=== PATIENT | female | born 1940 ===

== ENCOUNTER → 2018-05-12 | Outpatient (CLI) | payer OTHER ==
[~2018-05-12] VITALS: Ht 149.9 cm; Wt 72.5 kg
[~2018-05-12] MED LIST: ASPIR 8181 MG PO; CYMBALTA30 MG PO; ESTRACE1 TUBE VAG; FLONASE 0.05%50 MCG NASAL; IBUPROFEN 200200 M1 PO; LIORESAL 10 MG10 MG PO; LIPITOR80 MG PO; LYRICA 50 MG50 MG PO; LYRICA100 MG PO; XALATAN2.5 ML OPHTHALMIC
[2018-05-12 10:48] VITALS: BP 121/65
--- NOTE | 2018-05-12 11:01 | NUR ---
Pain Clinic Assessment: 1. History of Osteoarthritis: History of Rheumatoid Arthritis: 2. Height: 4 ft. 11 in. 149.9 cm. Weight: 159.8 lb. oz. 72.485 kg. Patient's BMI: 32.3 3. Vital Signs: BP: 121/65 Pulse: 80 Resp: 16 Temp: 02 Sat: 99 ECG Mon: 4. Pain Intensity: 1 5. Fall Risk: Dizziness: N Needs help standing or walking: N Fallen in the last 3 months: N Fall risk comments: 6. Patient on Blood Thinner: None 7. History of Hypertension: N 8. Opioid Therapy greater than 6 weeks: N Opiate Contract Signed: 9. Risk Assessment Tool Provided: LOW 10. Functional Assessment Tool: 11. Recreational Drug Use: Never Drug Type: Tobacco Use: Never Smoker Tobacco Type: Amount or Packs/day: How Many Years: Alcohol Use: Yes Frequency: Daily Quant: 1
== END ==
LOC: PAIN 06:51
DX: M25.552 Pain in left hip (principal); M54.5 Low back pain

== ENCOUNTER → 2018-09-01 | Outpatient (CLI) | payer OTHER ==
[~2018-09-01] VITALS: Ht 149.9 cm; Wt 72.2 kg
[2018-09-01 09:48] VITALS: BP 101/63
--- NOTE | 2018-09-01 09:59 | NUR ---
Pain Clinic Assessment: 1. History of Osteoarthritis: Not Applicable History of Rheumatoid Arthritis: Not Applicable 2. Height: 4 ft. 11 in. 149.9 cm. Weight: 159.2 lb. oz. 72.213 kg. Patient's BMI: 32.1 3. Vital Signs: BP: 101/63 Pulse: 94 Resp: 16 Temp: 02 Sat: 95 ECG Mon: 4. Pain Intensity: 1 5. Fall Risk: Dizziness: Y Needs help standing or walking: N Fallen in the last 3 months: N Fall risk comments: 6. Patient on Blood Thinner: None 7. History of Hypertension: N 8. Opioid Therapy greater than 6 weeks: N Opiate Contract Signed: 9. Risk Assessment Tool Provided: LOW 10. Functional Assessment Tool: 11. Recreational Drug Use: Never Drug Type: Tobacco Use: Never Smoker Tobacco Type: Amount or Packs/day: How Many Years: Alcohol Use: Yes Frequency: Special Occasions Quant: 1
--- NOTE | 2018-09-02 07:37 | HPC ---
[facility] [place] [address] PAIN MANAGEMENT CONSULTATION Name: BOBBY BRASHER Room #: REG JOHN Hooks.#: [id number] Admission: 09/01/18 ������������������ Attend Phys: Nery Wood Discharge: ������������������ Date of : 44 Report #: [id number] THIS REPORT FOR: //name// CC: Nery Wood [facility] physician/PCP DATE OF SERVICE: 09/01/2018 CHIEF COMPLAINT: Low back pain and left hip pain. HISTORY OF PRESENT ILLNESS: This is a very pleasant 78-year-old female, who returns to the Pain Clinic today for refill of her medications. Her last visit here was in April for medications. She has not been here since. She has been tapering some of her Lyrica since she needed an appointment to see us. She tells me that her pain score is a 1/10 today, mostly in her left hip, worse with movement and sitting, that her medications are helpful. She tells me that she has weaned her Lyrica some to get to this appointment. She is currently taking 50 mg b.i.d. and 100 once a day and she continues her Cymbalta pills once a day. She tells me she has an appointment with a new primary care doctor towards the end of August that she is hopeful that will take over her medications, but she is unsure at that time if he will continue her on Lyrica and is here today for refill of that medicine. ALLERGIES: PENICILLIN. CURRENT MEDICATIONS: Lyrica 50 mg b.i.d., Lyrica 100 daily, Cymbalta 30 mg daily, ibuprofen 200 mg p.r.n., baclofen 10 mg at bedtime, aspirin daily, Estrace daily, Flonase as needed, Lipitor 80 mg daily. PQRS: 1. The patient has osteoarthritic changes in her lower back. She denies any rheumatoid arthritis. 2. Height is 4 feet 11 inches, weight is 159, BMI is 32, blood pressure is 101/63, pulse is 94, respirations 16, oxygen sat is 95. Pain score is 1/10. 3. Fall risk. Complains of some dizziness, does not need help walking or standing, has not fallen in the last 3 months. 4. The patient is not on any blood thinners or hypertension medicines. She is not on opioids. 5. Her risk assessment tool is low. Her functional assessment is 0. 5. She denies any recreational drug use. She is not a smoker and occasionally drinks alcohol. PHYSICAL EXAMINATION: GENERAL: This is a well-developed, well-nourished, well-hydrated 78-year-old female, who appears her stated age, placing her current pain score of 1/[address] [address] PAIN MANAGEMENT CONSULTATION Name: BOBBY BRASHER Room #: REG CLI M.Rach.#: [id number] Admission: 09/01/18 ������������������ Attend Phys: Nery Wood Discharge: ������������������ Date of : 44 Report #: [id number] HEENT: Normocephalic, atraumatic. Pupils equal, round and reactive to light. Extraocular eye muscles are intact. Mucous membranes are moist. MUSCULOSKELETAL: Lower extremity strength judged to be 5/5, appears symmetrical. The patient complains of left hip pain that does not radiate down her legs. She does have some numbness in her feet bilaterally. The patient walks with a slightly antalgic gait. ASSESSMENT: 1. Chronic low back pain. 2. Chronic left buttock pain. 3. Chronic cervical radiculopathy. 4. Chronic intractable pain. PLAN: 1. We discussed treatment options with thue patient today. The patient is here for renewal of her Lyrica. She tells me she has weaned down her medicines, but she seems to be doing quite well. We discussed the lowest most effective dose for her Lyrica and it was decided after much discussion to give her a prescription of Lyrica 100 mg 3 times a day, #90 with 2 additional refills. The patient was instructed to start her Lyrica at 100 b.i.d. and continue that indefinitely. If her pain does increase, then she will take the third pill and go back to 300 mg total a day. This is what she has been taking in that 150 mg pills. The patient is agreeable with this plan of care. 2. The patient has been also taking Cymbalta 30 mg daily. She has plenty of medications left from her last refill. She will ask her new primary care doctor to refill that. She has plenty of pills to get to that appointment. 3. I did inform the patient that she will need to be seen by a physician here in the clinic every 3 months if we continue to write her Lyrica. She verbalizes understanding. Hopefully, her primary doctor will take over her medicines, but she will make an appointment as needed. 4. The patient is seen with Dr. Adrián Cardozo, who collaborated care today. ��������������������������������������������� <ELECTRONICALLY SIGNED> ���������������������������������������� By: Nery Wood ��������������������������������������������� 09/02/18 [id number] Nery Wood /adriel
== END ==
LOC: PAIN 06:48
DX: G89.29 Other chronic pain (principal); M47.816 Spondylosis without myelopathy or radiculopathy, lumbar region; M54.12 Radiculopathy, cervical region; Z88.0 Allergy status to penicillin; Z79.891 Long term (current) use of opiate analgesic